=== PATIENT | female | born 1965 | race Caucasian/White ===

== ENCOUNTER 2018-12-03 16:33 | Emergency (ER) | payer OTHER ==
[~2018-12-03] VITALS: Ht 160 cm; Wt 100.0 kg
[2018-12-03 17:04] LABS: GLUCOSE,POINT OF CARE 166 MG/DL (70-110)
[2018-12-03] MEDS ORDERED: INSLAN SQ (17:06)
[2018-12-03] MEDS ORDERED: LOSA50TA64 PO (17:06)
[2018-12-03] MEDS ORDERED: GLIP10 PO (17:06)
[2018-12-03] MEDS ORDERED: METF-960 PO (17:06)
[2018-12-03] MEDS ORDERED: ATEN25TA PO (17:06)
[2018-12-03] MEDS ORDERED: LOSA1TAB37 PO (17:07)
[2018-12-03] MEDS ORDERED: GADOBUTROL 1 MMOL/ML 10 ML VIAL IVP ONE (18:49)
[2018-12-03] MEDS ORDERED: LORazepam 1 MG TABLET PO ONE (19:00)
[2018-12-03 19:08] LABS: EOSINOPHILS % (AUTO) 2.7 % (1.0-6.0); HEMATOCRIT 36.7 % (36-46); HEMOGLOBIN 12.5 g/dL (12.0-16.0); LYMPHOCYTES # (AUTO) 2.2 K/uL (1.0-4.8); LYMPHOCYTES % (AUTO) 38.5 % (22.0-44.0); MEAN CORPUSCULAR HGB CONC 34.1 G/dL (31.0-37.0); MEAN CORPUSCULAR VOLUME 88 fL (80-100); MONOCYTES # (AUTO) 0.6 K/uL (0.1-1.0); MONOCYTES % (AUTO) 10.3 % (2.0-9.0); NEUTROPHILS # (AUTO) 2.8 K/uL (1.8-7.7); NEUTROPHILS % (AUTO) 47.5 % (40.0-70.0); PLATELET COUNT (AUTO) 336 K/uL (150-450); RED BLOOD CELL COUNT(AUTO) 4.17 MIL/uL (4.00-5.20); RED CELL DISTRIBUTION WIDTH 12.7 % (11.5-14.5)
[2018-12-03 19:20] LABS: ANION GAP 8 mmol/L (8-16); CALCIUM, TOTAL 9.4 mg/dL (8.8-10.5); CARBON DIOXIDE 29 mmol/L (22-29); CHLORIDE 102 mmol/L (98-107); CREATININE 0.68 mg/dL (0.60-1.30); GLOMERULAR FILTR. RATE CALC > 60 mL/min (>60); GLUCOSE,RANDOM 127 mg/dL (70-110); POTASSIUM 3.7 mmol/L (3.5-5.1); SODIUM SERUM 139 mmol/L (136-145); UREA NITROGEN, BLOOD 9 mg/dL (7-18)
[2018-12-03 19:28] LABS: ALANINE AMINOTRANSFERASE 43 U/L (12-78); ALBUMIN 3.6 g/dL (3.4-5.0); ALKALINE PHOSPHATASE 91 U/L (46-116); ASPARTATE AMINOTRANSFERASE 26 U/L (15-37); BILIRUBIN,TOTAL 0.2 mg/dL (0.1-1.0); TOTAL PROTEIN, SERUM 7.6 g/dL (6.4-8.2)
[2018-12-03] MEDS ORDERED: DEXAMETHASONE SOD PHOS 4 MG/ML 5 ML VIAL PO ONE (20:30)
[2018-12-03 21:44] VITALS: BP 127/75
== END 2018-12-03 21:47 | disposition home or self-care (01) ==
LOC: EMS 16:34
DX: H49.23 Sixth [abducent] nerve palsy, bilateral (principal); I10 Essential (primary) hypertension; E11.9 Type 2 diabetes mellitus without complications; Z79.4 Long term (current) use of insulin
CPT/HCPCS: 36415; 70450; 70553; 80053; 82962; 85025; 99284; A9585; J1100

== ENCOUNTER 2023-04-06 10:16 | Emergency (ER) | payer OTHER ==
[~2023-04-06] VITALS: Ht 167.6 cm; Wt 90.9 kg
[~2023-04-06 10:16] MED LIST: ATEN-73 PO; GLIP10TA10 PO; INSLAN SQ; LOSA1TAB37 PO; METF-1211 PO
[2023-04-06 10:19] VITALS: TEMP 98.6
[2023-04-06] MEDS ORDERED: ACETAMINOPHEN 500 MG TABLET PO ONE (12:30)
[2023-04-06] MEDS ORDERED: KETOROLAC TROMETHAMINE 30 MG/ML VIAL IM ONE (12:30)
[2023-04-06] MEDS ORDERED: LIDOCAINE 5% TRANSDERMAL PATCH TD ONE (12:30)
[2023-04-06] MEDS ORDERED: IBUP-1492 PO (12:49)
[2023-04-06] MEDS ORDERED: LIDO700A15 TP (12:49)
[2023-04-06 13:52] VITALS: BP 114/54; PULSE 61; RESP 16
== END 2023-04-06 14:09 | disposition home or self-care (01) ==
LOC: EMS 10:16
DX: M54.16 Radiculopathy, lumbar region (principal); I10 Essential (primary) hypertension; E11.9 Type 2 diabetes mellitus without complications; Z79.84 Long term (current) use of oral hypoglycemic drugs; Z79.899 Other long term (current) drug therapy
CPT/HCPCS: 99283; 96372; J1885